=== PATIENT | female | born 1980 | race Caucasian/White ===

== ENCOUNTER 2019-09-28 11:50 | Inpatient (IN) | payer OTHER, SELFPAY ==
--- NOTE | 2019-09-28 12:24 | RAD ---
XR Chest 1 View Portable HISTORY: Cough, congestion and fever COMPARISON: None FINDINGS: The heart size is normal. The lungs are well expanded without focal areas of consolidation, pneumothorax or pleural effusions. IMPRESSION: No radiographic evidence of acute cardiopulmonary process.
[2019-09-28 13:20] LABS: Hemoglobin 13.4 g/dL (12.0-16.0); Mean Corpuscular HGB CONC 34.2 g/dL (32.0-36.0); Mean Corpuscular Hemoglobin 31.3 pg (27.0-31.0); Mean Corpuscular Volume 91.5 fL (78.0-98.0); Mean Platelet Volume 9.5 fL (7.4-10.4); Platelet Count 196 thou/uL (130-400); RBC Distribution Width 11.5 % (11.5-14.5); Red Blood Cell (RBC) Count 4.29 mill/uL (4.20-5.40); White Blood Cell (WBC) Count 24.8 thou/uL (4.8-10.8)
[2019-09-28] MEDS ORDERED: Acetaminophen 500 MG TAB ONE (13:36)
[2019-09-28 13:40] LABS: ALT (SGPT) 48 U/L (8-55); AST (SGOT) 47 U/L (5-34); Albumin 3.8 g/dL (3.5-5.0); Alkaline Phosphatase 128 U/L (40-110); Anion Gap 18 mmol/L (10-20); BUN (Urea Nitrogen) 9 mg/dL (7.0-18.7); Bilirubin, Total 1.3 mg/dL (0.2-1.2); Calc. Creatinine Clearance 0 mL/min (70-130); Calcium 9.1 mg/dL (7.8-10.44); Carbon Dioxide 19 mmol/L (22-29); Chloride 101 mmol/L (98-107); Estimated GFR-MDRD 79; Globulin 3.8 g/dL (2.4-3.5); Glucose 105 mg/dL (70-105); Potassium 3.5 mmol/L (3.5-5.1); Protein, Total 7.6 g/dL (6.0-8.3); Sodium 134 mmol/L (136-145)
[2019-09-28 13:43] LABS: Band 12 % (5-11); Eosinophils 1 % (0-10); Large Platelets SLIGHT; Lymphocytes 4 % (21-51); MDiff Complete? YES; Monocytes 7 % (0-10); Neutrophil 76 % (42-75); Platelet Clumps SLIGHT; Platelet Morphology Comment Appears Adequate; RBC Morphology Normal
[2019-09-28 13:48] LABS: Bacteria/HPF 4+ HPF (None Seen); Bilirubin Negative (Negative); Blood, Urine 2+ (Negative); Clarity Turbid (Clear); Glucose, Urine (Dipstick) Normal (Negative); Leukocyte 500 Leu/uL (Negative); Nitrite 2+ (Negative); Protein, Urine (Dipstick) 300 mg/dL (Neg-Trace); RBC/HPF 21-50 HPF (0-3); Urobilinogen Normal mg/dL (Less than 2); WBC/HPF Greater than 50 HPF (0-3)
[2019-09-28 14:13] LABS: Pregnancy Test - Urine (BHCG) Negative (Negative); Pregu Control Background? CLEAR/WHITE (CLR/WHITE); Pregu Control Bar Appear? YES (CONTROL BAR); Specific Gravity 1.019 (1.002-1.036)
[2019-09-28] MEDS ORDERED: cefTRIAXone\\ROCEPHIN 1 GM VIAL ONE (14:26)
[2019-09-28] MEDS ORDERED: Loperamide HCl 2 MG CAP PO PRN (14:44)
[2019-09-28] MEDS ORDERED: Bisacodyl 5 MG TAB PO PRN (14:44)
[2019-09-28] MEDS ORDERED: Calcium Carbonate 500 MG ChewTAB PO PRN (14:44)
[2019-09-28] MEDS ORDERED: Labetalol HCl 100 MG/20 ML VIAL SLOW IVP PRN (14:49)
[2019-09-28] MEDS ORDERED: Melatonin 3 MG TAB PO PRN (14:49)
[2019-09-28] MEDS ORDERED: Docusate 100 MG CAP PO PRN (14:49)
[2019-09-28] MEDS ORDERED: diphenhydrAMINE 25 MG CAP PO PRN (14:49)
[2019-09-28] MEDS ORDERED: Benzonatate 100 MG CAP PO PRN (14:49)
--- NOTE | 2019-09-28 15:48 | CT ---
CT ABDOMEN AND PELVIS WITHOUT IV CONTRAST: Indications: Fever, body aches. Assess for pyelonephritis. FINDINGS: Images through the lung bases show mild posterior atelectasis. Liver unremarkable. Spleen shows numerous granulomatous calcifications. The pancreas is unremarkable. Adrenal glands normal. Review of the kidneys show a 1.0 cm rounded calculus in the right renal pelvis. This does not appear to be producing obstructive change. Both ureters are normal caliber. Mild nonspecific left perinephric stranding could represent pyelonephritis. The urinary bladder is unremarkable. Small bowel loops normal caliber. The appendix is not identified. Colon is unremarkable. Aorta is normal caliber. Images through the pelvis show fluid in the cul-de-sac and right adnexa. Uterus and ovaries otherwise unremarkable. Osseous structures unremarkable. IMPRESSION: 1. A 1.0 cm calculus in the right renal pelvis. This does not appear to be producing obstructive [place] at this time. 2. Nonspecific perinephric stranding involving the left kidney and questionable left renal edema coul d represent pyelonephritis. This is suboptimally evaluated without IV contrast. 3. No obstructive change. 4. Images through the pelvis show free fluid in the cul-de-sac and right adnexa. Suggest correlation with serum HCG. POS: [facility]
[2019-09-28 17:11] VITALS: BMI 29.5
[2019-09-28] MEDS ORDERED: Fioricet 325/50/40 mg Tablet PO PRN (17:19)
[2019-09-28] MEDS: Sodium Chloride 0.9% 1,000 ML IV SCH ×2 (17:28→23:20)
--- NOTE | 2019-09-28 17:36 | PDOC.HHP ---
Hospitalist HPI - History of Present Illness Fever History of Present Illness: Ms. Starr is a very pleasant 39-year-old female with no known past medical history presents with fever. Patient has been feeling ill for the last three days. It started with subjective chills and feeling as though she was sweating. Patient states that at the time she did not have a temperature. Patient denies urinary frequency, urgency, or dysuria. Patient denies flank pain. Patient does have full-body sweats, and generalized malaise. Patient with mild headache. Patient denies any respiratory symptoms, no cough, no shortness of breath, no sputum production. Patient has not been exposed anybody with the covid 19 virus. Patient is otherwise healthy and takes no medications chronically. Patient with past medical history of remote kidney stones. Patient has had no surgeries in the past. Patient diagnosed with severe sepsis present on admission secondary to pyelonephritis. Patient admitted to the medical floor for close management. 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 Gastrointestinal: reports: no pertinent history Heme/Onc: reports: no pertinent history Hepatobiliary: reports: no pertinent history Psych: reports: no pertinent history Musculoskeletal: reports: no pertinent history Rheumatologic: reports: no pertinent history Infectious Disease: reports: no pertinent history ENT: reports: no pertinent history Renal/: reports: no pertinent history Endocrine: reports: no pertinent history Dermatology: reports: no pertinent history - Past Surgical History Past Surgical History: reports: no pertinent history - Family History Family History: reports: hypertension - Social History Smoking Status: Current every day smoker (Vape) Alcohol: reports: Occassional Drugs: reports: marijuana Living Situation: With Family Domestic Violence: Negative Activity level: independent ambulation - Exam General Appearance: ill appearing General - other findings: diaphoretic sweating through sheets of bed currently Eye: PERRL, anicteric sclera ENT: normocephalic atraumatic, moist mucosa Neck: supple, symmetric, no lymphadenopathy Heart: RRR, no murmur, no gallops, no rubs, normal peripheral pulses Respiratory: CTAB, no wheezes, no rales, no ronchi, normal chest expansion, no tachypnea Gastrointestinal: soft, non-tender, no guarding, no rigidity Extremities: no edema Skin: no rashes Neurological: cranial nerve grossly intact, no focal deficits Musculoskeletal: generalized weakness Psychiatric: A&O x 3, lethargic Hospitalist Results - Labs Result Diagrams: 09/28/19 12:48 09/28/19 12:48 Lab results: WBC 24.8 thou/uL (4.8-10.8) H 09/28/19 12:48 Hgb 13.4 g/dL (12.0-16.0) 09/28/19 12:48 Hct 39.3 % (36.0-47.0) 09/28/19 12:48 MCV 91.5 fL (78.0-98.0) 09/28/19 12:48 Plt Count 196 thou/uL (130-400) 09/28/19 12:48 Band Neuts % (Manual) 12 % (5-11) H 09/28/19 12:48 Sodium 134 mmol/L (136-145) L 09/28/19 12:48 Potassium 3.5 mmol/L (3.5-5.1) 09/28/19 12:48 Chloride 101 mmol/L (98-107) 09/28/19 12:48 Carbon Dioxide 19 mmol/L (22-29) L 09/28/19 12:48 BUN 9 mg/dL (7.0-18.7) 09/28/19 12:48 Creatinine 0.80 mg/dL (0.6-1.1) 09/28/19 12:48 Glucose 105 mg/dL (70-105) 09/28/19 12:48 Lactic Acid 1.0 mmol/L (0.5-2.2) 09/28/19 12:48 Calcium 9.1 mg/dL (7.8-10.44) 09/28/19 12:48 Total Bilirubin 1.3 mg/dL (0.2-1.2) H 09/28/19 12:48 AST 47 U/L (5-34) H 09/28/19 12:48 ALT 48 U/L (8-55) 09/28/19 12:48 Alkaline Phosphatase 128 U/L (40-110) H 09/28/19 12:48 Serum Total Protein 7.6 g/dL (6.0-8.3) 09/28/19 12:48 Albumin 3.8 g/dL (3.5-5.0) 09/28/19 12:48 Urine Ketones 10 mg/dL (Negative) A 09/28/19 12:45 Urine Blood 2+ (Negative) A 09/28/19 12:45 Urine Nitrite 2+ (Negative) A 09/28/19 12:45 Ur Leukocyte Esterase 500 Mary/uL (Negative) A 09/28/19 12:45 Urine RBC 21-50 HPF (0-3) A 09/28/19 12:45 Urine WBC Greater than 50 HPF (0-3) A 09/28/19 12:45 Ur Squamous Epith Cells 7-10 HPF (0-3) A 09/28/19 12:45 Urine Bacteria 4+ HPF (None Seen) A 09/28/19 12:45 - Radiology Interpretation CT scan - abdomen Status: image reviewed by wi Hospitalist H&P A/P - Problem (1) Severe sepsis Code(s): A41.9 - SEPSIS, UNSPECIFIED ORGANISM; R65.20 - SEVERE SEPSIS WITHOUT SEPTIC SHOCK Status: Acute (2) Pyelonephritis Code(s): N12 - TUBULO-INTERSTITIAL NEPHRITIS, NOT SPCF ACUTE OR CHRONIC Status: Acute (3) UTI (urinary tract infection) Status: Acute (4) Fever Code(s): R50.9 - FEVER, UNSPECIFIED Status: Acute (5) Leukocytosis Code(s): D72.829 - ELEVATED WHITE BLOOD CELL COUNT, UNSPECIFIED Status: Acute (6) Tobacco abuse Code(s): Z72.0 - TOBACCO USE Status: Acute (7) Nephrolithiasis Status: Acute - Plan Plan: Plan: admit to medical floor, inpatient status broad-spectrum antibiotics urinary culture blood culture de-escalate to culture and sensitivity as able IV fluid resuscitation sepsis protocol blood sugar control routine screening labs Nicotine patch G.I. prophylaxis DVT prophylaxis
[2019-09-28] MEDS ORDERED: Nicotine 14 MG PATCH TD PRN (18:00)
[2019-09-28] MEDS: Ondansetron PF 4 MG/2 ML Vial IVP PRN (20:59)
[2019-09-28] MEDS: Famotidine 20 MG TAB PO SCH (20:59)
[2019-09-28] MEDS: Acetaminophen 325 MG TAB PO PRN (21:02)
[2019-09-28] MEDS: HYDROcodone/Acetaminophen 5/325 mg Tablet PO PRN (23:18)
[2019-09-29] MEDS: Acetaminophen 325 MG TAB PO PRN ×3 (03:41→22:05)
[2019-09-29] MEDS: Ondansetron PF 4 MG/2 ML Vial IVP PRN ×3 (03:42→16:12)
[2019-09-29] MEDS: Sodium Chloride 0.9% 1,000 ML IV SCH ×2 (05:17→16:14)
[2019-09-29 05:42] LABS: Hemoglobin 11.9 g/dL (12.0-16.0); Mean Corpuscular HGB CONC 33.9 g/dL (32.0-36.0); Mean Corpuscular Hemoglobin 31.1 pg (27.0-31.0); Mean Corpuscular Volume 91.7 fL (78.0-98.0); Mean Platelet Volume 8.8 fL (7.4-10.4); Platelet Count 290 thou/uL (130-400); RBC Distribution Width 11.3 % (11.5-14.5); Red Blood Cell (RBC) Count 3.82 mill/uL (4.20-5.40); White Blood Cell (WBC) Count 20.4 thou/uL (4.8-10.8)
[2019-09-29 05:50] LABS: Hemoglobin A1c 4.8 % (4.0-6.0)
[2019-09-29 06:08] LABS: Anion Gap 11 mmol/L (10-20); BUN (Urea Nitrogen) 7 mg/dL (7.0-18.7); Calc. Creatinine Clearance 137 mL/min (70-130); Calcium 8.6 mg/dL (7.8-10.44); Carbon Dioxide 21 mmol/L (22-29); Chloride 106 mmol/L (98-107); Cholesterol 159 mg/dl (< 200 Desired); Estimated GFR-MDRD Greater than 90; Glucose 110 mg/dL (70-105); HDL Cholesterol 32 mg/dL (>60 Neg Risk); LDL Cholesterol, Calculated 106 mg/dL; Potassium 3.4 mmol/L (3.5-5.1); Sodium 135 mmol/L (136-145); Triglycerides 106 mg/dL (Less than 150)
[2019-09-29 06:09] LABS: Band 23 % (5-11); Lymphocytes 4 % (21-51); MDiff Complete? YES; Monocytes 9 % (0-10); Neutrophil 64 % (42-75)
[2019-09-29 06:26] LABS: Free T4 (Free Thyroxine) 0.99 ng/dL (0.70-1.48); Thyroid Stimulating Hormone 1.1272 uIU/mL (0.35-4.94)
[2019-09-29] MEDS ORDERED: FLU VACC QS2019-20(6MOS UP)/PF 60 MCG/0.5 ML SYRINGE IM ONE (09:00)
[2019-09-29] MEDS: HYDROcodone/Acetaminophen 5/325 mg Tablet PO PRN ×2 (09:15→16:12)
[2019-09-29] MEDS: Famotidine 20 MG TAB PO SCH ×2 (09:16→22:01)
--- NOTE | 2019-09-29 11:11 | PDOC.HOSPP ---
- Subjective Subjective: Feeling worse this a.m. Severe flank pain. Nausea and vomiting this AM. Afebrile since admission. WBC count down trending, preliminary urine culture with E. coli, sensitivity pending. Time was given for questions, all answered in detail. - Objective Vital Signs & Weight: Vital Signs (12 hours) Temp Pulse Resp BP Pulse Ox 09/29/19 07:32 98.4 F 75 20 103/67 97 09/29/19 04:00 99.1 F 93 20 101/63 94 L 09/29/19 00:00 98.8 F 94 20 104/68 96 Weight Weight 177 lb 1.6 oz I&O: 09/28/19 09/29/19 09/30/19 06:59 06:59 06:59 Intake Total 2240 Balance 2240 Result Diagrams: 09/29/19 05:15 09/29/19 05:15 Radiology Reviewed by me: Yes Hospitalist ROS - Review of Systems All other systems reviewed; all pertinent +/- noted in HPI/Subj - Medication Medications: Active Medications Generic Name Dose Route Start Last Admin Trade Name Freq PRN Reason Stop Dose Admin Acetaminophen 650 mg 09/28/19 14:44 09/29/19 03:41 Tylenol PO 650 mg Q4H PRN Administration Headache/Fever/Mild Pain (1-3) Hydrocodone Bitart/Acetaminophen 1 tab 09/28/19 14:44 09/29/19 09:15 [place] 5/325 PO 1 tab Q4H PRN Administration Moderate Pain (4-6) Famotidine 20 mg 09/28/19 21:00 09/29/19 09:16 Pepcid PO 20 mg BID ERIKA Administration Ondansetron HCl 4 mg 09/28/19 14:44 09/29/19 09:15 Zofran IVP 4 mg Q6H PRN Administration Nausea/Vomiting - Exam General Appearance: ill appearing Eye: PERRL, anicteric sclera ENT: normocephalic atraumatic, moist mucosa Neck: supple, symmetric, no lymphadenopathy Heart: RRR, no murmur, no gallops, no rubs, normal peripheral pulses Respiratory: CTAB, no wheezes, no rales, no ronchi, normal chest expansion, no tachypnea Gastrointestinal: soft, non-tender, no guarding, no rigidity Extremities: no edema Skin: no lesions, no rashes Neurological: cranial nerve grossly intact, no focal deficits Psychiatric: A&O x 3, lethargic Hosp A/P (1) Severe sepsis Code(s): A41.9 - SEPSIS, UNSPECIFIED ORGANISM; R65.20 - SEVERE SEPSIS WITHOUT SEPTIC SHOCK Status: Acute (2) Pyelonephritis Code(s): N12 - TUBULO-INTERSTITIAL NEPHRITIS, NOT SPCF ACUTE OR CHRONIC Status: Acute (3) UTI (urinary tract infection) Status: Acute (4) Fever Code(s): R50.9 - FEVER, UNSPECIFIED Status: Acute (5) Leukocytosis Code(s): D72.829 - ELEVATED WHITE BLOOD CELL COUNT, UNSPECIFIED Status: Acute (6) Tobacco abuse Code(s): Z72.0 - TOBACCO USE Status: Acute (7) Nephrolithiasis Status: Acute - Plan Plan: medical unit urology consultation, recommendations appreciated Nephrolithiasis on CT abd/ pelvis, no obvious hydronephrosis at that time broad-spectrum antibiotics urine culture, preliminary with e. coli, sensitivity pending blood culture De escalate to culture and sensitivity as able IV fluid resuscitation sepsis protocol symptomatic control of nausea and vomiting No pulmonary symptoms, no cough, no COVID exposure blood sugar control routine screening labs nicotine patch PRN G.I. prophylaxis DVT prophylaxis
[2019-09-29] MEDS: Morphine 2 MG/ML SYRINGE SLOW IVP PRN ×2 (11:32→18:02)
--- NOTE | 2019-09-29 13:25 | RAD ---
SUPINE ABDOMEN: HISTORY: Renal calculus. COMPARISON: CT abdomen and pelvis 09/28/19. FINDINGS: The 1 cm calculus seen in the upper collecting structures of the right kidney on CT is seen on plain film. The bowel gas pattern is nonspecific with scattered small bowel gas. Stool and gas throughout the colon. IMPRESSION: A 1 cm calculus in the right renal pelvis is noted. No other urinary tract calcification was seen on yesterday's CT. POS: [facility]
[2019-09-29] MEDS: cefTRIAXone\\ROCEPHIN 2 GM in Sodium Chloride 0.9% 100 ML IVPB SCH (13:48)
--- NOTE | 2019-09-29 13:58 | CON ---
DATE OF CONSULTATION: 09/29/2019 REASON FOR CONSULT: Pyelonephritis, history of kidney stones. HISTORY OF PRESENT ILLNESS: Ms. Starr is a pleasant 39-year-old female, who presented to the emergency room with 3-day history of generalized feeling of malaise, chills. ER workup demonstrated temperature of 103.3, tachycardic. Her fever has resolved, tachycardia resolved with fluids. She has been provided Rocephin by the emergency room and continues to be provided Rocephin on the floor. She denies prior history of pyelonephritis. Remote history of UTI as a teenager. Known history of recurrent kidney stone, right and left side per the patient with spontaneous passage, however, these were small in caliber. She denies prior surgical intervention for kidney stones. 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 She denies dysuria, gross hematuria. She did present with left flank pain, mild right flank pain. She states that this has improved with minimal discomfort at this time. PAST MEDICAL HISTORY: History of kidney stones with spontaneous passage. PAST SURGICAL HISTORY: None. ALLERGIES: NO KNOWN DRUG ALLERGIES. 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 Occasional marijuana. Social drinker. PHYSICAL EXAMINATION: VITAL SIGNS: T-max of 103.3 in the emergency room, T-current is 99.4, her heart rate is 94, and blood pressure 118/76. GENERAL: The patient looks malaise, however, cooperative to physical exam. She states that subjectively she has been feeling better than on initial presentation. HEENT: Grossly unremarkable. Her skin is somewhat clammy. HEART: Regular rate. LUNGS: Clear. ABDOMEN: Soft. There is no gross CVA tenderness on today's exam. EXTREMITIES: No cyanosis, clubbing, or edema. SKIN: Cool to touch, multiple tattoos appreciated. GENITOURINARY: Grossly unremarkable without evidence of significant prolapse. EXTREMITIES: No cyanosis, clubbing, or edema. NEUROLOGIC: No gross focal deficits. PSYCHIATRIC: Appears to be appropriate and intact. PERTINENT LABORATORY AND IMAGING DATA: She presented with white count of 24.8. Repeat CBC this morning is 20.4, hemoglobin 11, platelet 290, 12 bands yesterday , 23 bands today, however, segs are improved from 76 to 64. Creatinine is 0.6. Lactic acid within normal limits at 1.0. Chest x-ray negative. UA demonstrates 500 leukocytes, 20 to 50 rbc's, greater than 50 wbc's, 7 to 10 epithelials, and 4+ bacteria. Urine culture demonstrating Escherichia coli. Sensitivity is pending. CT of the abdomen and pelvis without contrast: Spleen demonstrates multiple granulomatous calcifications. No evidence of hydronephrosis bilaterally. There is a 1-cm right renal pelvic stone. Mild left perinephric stranding suggesting left pyelonephritis. No gross abscess is seen. Per my review, the right renal pelvic stone measures 10 x 8 mm, Hounsfield unit greater than 1000. IMPRESSION AND PLAN: 1. Ms. Starr is a 39-year-old female, who presents with Escherichia coli pyelonephritis. 2. History of fever, leukocytosis. 3. History of kidney stone. 4. Current CT demonstrating no evidence of hydronephrosis, nonobstructing right renal pelvic stone measuring 10 x 8 mm per my review. l obtain KUB. Continue Rocephin, I will add Levaquin, until sensitivity finalized. Unless the stone presents with obstructive uropathy, elective treatment of her right kidney stone is advised. discontinue her calcium supplementation, as her Hounsfield unit of calculi c/w dense stone, calcium moiety. 5. Gastroesophageal reflux disease, may provide pharmacologic medication for gastroesophageal reflux disease. Discontinue calcium/Tums. The patient will need to be in-house until sensitivity finalized for transition to appropriate oral antibiotic regimen. Job ID: [id number] [facility]
[2019-09-30] MEDS: Sodium Chloride 0.9% 1,000 ML IV SCH ×2 (05:43→12:43)
[2019-09-30 06:28] LABS: Anion Gap 11 mmol/L (10-20); BUN (Urea Nitrogen) 5 mg/dL (7.0-18.7); Calc. Creatinine Clearance 161 mL/min (70-130); Calcium 8.4 mg/dL (7.8-10.44); Carbon Dioxide 23 mmol/L (22-29); Chloride 106 mmol/L (98-107); Estimated GFR-MDRD Greater than 90; Glucose 88 mg/dL (70-105); Potassium 3.1 mmol/L (3.5-5.1); Sodium 137 mmol/L (136-145)
[2019-09-30 06:29] LABS: #Eosinphils 0.1 thou/uL (0.0-0.7); #Lymphocytes 1.7 thou/uL (1.20-3.40); #Monocytes 1.7 thou/uL (0.11-0.59); #Neutrophils 8.1 thou/uL (1.40-6.50); %Basophils 0.3 % (0.0-1.0); %Eosinophils 0.6 % (0.0-10.0); %Lymphocytes 14.4 % (21.0-51.0); %Monocytes 14.4 % (0.0-10.0); %Neutrophils 70.3 % (42.0-75.0); Hemoglobin 10.5 g/dL (12.0-16.0); Mean Corpuscular HGB CONC 34.6 g/dL (32.0-36.0); Mean Corpuscular Hemoglobin 31.6 pg (27.0-31.0); Mean Corpuscular Volume 91.5 fL (78.0-98.0); Mean Platelet Volume 8.7 fL (7.4-10.4); Platelet Count 261 thou/uL (130-400); RBC Distribution Width 11.5 % (11.5-14.5); Red Blood Cell (RBC) Count 3.31 mill/uL (4.20-5.40); White Blood Cell (WBC) Count 11.5 thou/uL (4.8-10.8)
[2019-09-30] MEDS: Famotidine 20 MG TAB PO SCH ×2 (08:22→21:09)
--- NOTE | 2019-09-30 08:40 | RAD ---
EXAM: XR Abdomen 1 View/KUB PROVIDED CLINICAL HISTORY: Right renal calculus COMPARISON: 09/29/2019 FINDINGS: Calculus involving right renal pelvis redemonstrated, radiographically stable. No additional urinary tract calculi are radiographically apparent. The abdominal bowel gas pattern is nonspecific. IMPRESSION: Stable exam.
--- NOTE | 2019-09-30 08:45 | PRG ---
DATE OF SERVICE: 09/30/2019 SUBJECTIVE: Denies chills, feels better today. Denies nausea or vomiting. On today's round, she relates that she has vague right lower back pain, constant in nature. OBJECTIVE: VITAL SIGNS: T-max of 103.1, T current 99.2, pulse 97, respiratory rate 18, and blood pressure 146/86. GENERAL: Overall appearance is significantly better. HEENT: Grossly unremarkable. HEART: Regular rate. LUNGS: Clear. ABDOMEN: Soft. MUSCULOSKELETAL: Mild tenderness of the right lower back. EXTREMITIES: No cyanosis, clubbing, or edema. PERTINENT LABORATORY DATA: White count significantly improved from 24,000 to 11.5, hemoglobin 10, platelet 262, resolution of bandemia. Creatinine 0.7. Urine culture E. coli, pansensitive except to quinolones. The patient currently on Rocephin. Blood culture preliminary negative. Influenza negative. CT on admission demonstrates left perinephric stranding consistent with pyelonephritis, incidental right 1 cm renal pelvic stone. KUB yesterday demonstrates stone in the kidney consistent with renal calculi. IMPRESSION AND PLAN: 1. Ms. Starr is a 39-year-old female admitted for Escherichia coli pyelonephritis. Blood culture negative. 2. History of fever. 3. Leukocytosis, bandemia, improved, resolving. 4. Right renal pelvic stone as she has vague right flank pain, we will obtain repeat KUB. Infectious Disease consultation obtained, due to quinolone resistance. I would prefer oral quinolones, however, it is resistant. As I believe, cephalosporin oral has poor tissue penetration, will initiate Infectious Disease consult, IV Rocephin as outpatient is preferable? Anticipate the patient to be discharged in the next 24 to 48 hours, if needs to be afebrile for at least 24 hours prior to discharge. addendum repeat KUB this morning demonstrates no change in location of her right renal pelvic stone. No change in disposition/plan. Job ID: [id number] [facility]
[2019-09-30] MEDS: HYDROcodone/Acetaminophen 5/325 mg Tablet PO PRN ×2 (08:49→12:46)
--- NOTE | 2019-09-30 11:08 | PDOC.HOSPP ---
- Subjective Encounter Date: 09/30/19 Encounter Time: 07:45 Subjective: still has mild pain in right lower back area, no nausea had fever overnight, none now - Objective Vital Signs & Weight: Vital Signs (12 hours) Temp Pulse Resp BP BP Pulse Ox 09/30/19 07:46 95 09/30/19 07:39 99.2 F 97 18 146/86 H 95 09/30/19 04:58 98.3 F 81 20 110/73 96 Weight Weight 177 lb 0.499 oz I&O: 09/29/19 09/30/19 10/01/19 06:59 06:59 06:59 Intake Total 2240 Balance 2240 Result Diagrams: 09/30/19 05:49 09/30/19 05:49 Hospitalist ROS - Medication Medications: Active Medications Generic Name Dose Route Start Last Admin Trade Name Freq PRN Reason Stop Dose Admin Acetaminophen 650 mg 09/28/19 14:44 09/29/19 22:05 Tylenol PO 650 mg Q4H PRN Administration Headache/Fever/Mild Pain (1-3) Hydrocodone Bitart/Acetaminophen 1 tab 09/28/19 14:44 09/30/19 08:49 [place] 5/325 PO 1 tab Q4H PRN Administration Moderate Pain (4-6) Famotidine 20 mg 09/28/19 21:00 09/30/19 08:22 Pepcid PO 20 mg BID ERIKA Administration Ceftriaxone Sodium 2 gm/ 100 mls @ 200 mls/hr 09/29/19 14:00 09/29/19 13:48 Sodium Chloride IVPB 100 mls 1400 ERIKA Administration Sodium Chloride 1,000 mls @ 75 mls/hr 09/29/19 14:45 09/30/19 05:43 Normal Saline 0.9% IV 10/01/19 14:46 Not Given .[id number] ERIKA Morphine Sulfate 2 mg 09/28/19 14:50 09/29/19 18:02 Morphine SLOW IVP 2 mg Q4H PRN Administration Moderate to Severe Pain (6-10) Ondansetron HCl 4 mg 09/28/19 14:44 09/29/19 16:12 Zofran IVP 4 mg Q6H PRN Administration Nausea/Vomiting Sodium Chloride 10 ml 09/30/19 09:00 09/30/19 08:24 Flush - Normal Saline IVF Not Given Q12HR ERIKA - Exam General Appearance: awake alert Eye: PERRL, anicteric sclera ENT: no oropharyngeal lesions, moist mucosa Neck: supple, no JVD Heart: RRR, no murmur Respiratory: no wheezes, no rales Gastrointestinal: soft, non-distended, normal bowel sounds, no guarding, no rigidity Extremities: no cyanosis, no edema Neurological: cranial nerve grossly intact, no focal deficits Psychiatric: normal affect, A&O x 3 Hosp A/P (1) Sepsis Code(s): A41.9 - SEPSIS, UNSPECIFIED ORGANISM Status: Acute Qualifiers: Sepsis type: Escherichia coli Sepsis acute organ dysfunction status: without acute organ dysfunction Qualified Code(s): A41.51 - Sepsis due to Escherichia coli [E. coli] (2) Nephrolithiasis Status: Acute (3) Pyelonephritis Code(s): N12 - TUBULO-INTERSTITIAL NEPHRITIS, NOT SPCF ACUTE OR CHRONIC Status: Acute - Plan urine cultures are growing e.coli resistant to quinolones CT abd and kub xray results noted, has perinephric stranding on left and right pelvic area stone which is nonobstructive had tmax of 103 last 24hrs continue iv hydration, ceftriaxone to ambulate in hallway as tolerated dc plan per urology adv, likely in am if stable
[2019-09-30] MEDS: Ondansetron PF 4 MG/2 ML Vial IVP PRN (12:46)
[2019-09-30] MEDS: cefTRIAXone\\ROCEPHIN 2 GM in Sodium Chloride 0.9% 100 ML IVPB SCH (12:50)
--- NOTE | 2019-09-30 15:59 | CON ---
DATE OF CONSULTATION: 09/30/2019 REASON FOR CONSULT: Pyelonephritis. HISTORY OF PRESENT ILLNESS: A 39-year-old with history of nephrolithiasis with 2 episodes of stone excretion which was spontaneous in the past, now presents with fever and flank pain. No headaches. No visual symptoms, sore throat, odynophagia, dysphagia. No chest pain. Mild cough. No abdominal pain or diarrhea. No joint symptoms. No skin disorder. MEDICAL HISTORY: Nephrolithiasis with spontaneous passage of small kidney stones. SOCIAL HISTORY: Drinks occasionally, no smoking. She vapes. She had been smoking in the past, but she is vaping right now. Lives with family. ALLERGIES: NONE. CURRENT MEDICATIONS: 1. P.r.n. medications. 2. Fioricet. 3. [place]. 4. DuoNeb. 5. Tessalon. 6. Ceftriaxone. 7. Pepcid. 8. Colace. 9. Normodyne. 10. Imodium. 11. Melatonin. PHYSICAL EXAMINATION: VITAL SIGNS: T-max 103 yesterday, she is now 98.3. Other vital signs are normal. GENERAL: Awake, alert. No distress. SKIN: Normal, no lymphadenopathy. HEENT: Ocular movements conjugate. Nasal passages patent. Oral cavity normal. NECK: Supple. No jugular venous distention. LUNGS: Symmetric, clear breath sounds. HEART: S1, S2, regular rate with right flank pain. ABDOMEN: Soft, not distended. [id number] tenderness in right flank area. No suprapubic distention or tenderness. MUSCULOSKELETAL: No joint inflammatory activity. Pulses 1+ in dorsalis pedis. NEUROLOGIC: Nonfocal including cognitive function. LABORATORY DATA: Urinalysis, greater than 50 wbc's. White cell count is 24,000, down to 11.5; hemoglobin 13.4; platelets 196; 12% bands. Creatinine 0.69. AST 47, ALT 48, bilirubin 1.3, globulin 3.8. E coli from urine, one sample. Two sets of blood cultures pending. Urine organism is susceptible to all agents except for quinolones. MARCIE for trimethoprim sulfa is less than 20. IMAGING STUDIES: Show a 1 cm calculus in the right renal pelvis without obstruction and there is perinephric stranding in the left kidney. ASSESSMENT AND PLAN: Pyelonephritis, nephrolithiasis and quinolone resistant E coli and but no obstruction. Probably tomorrow should be able to be transitioned to oral Bactrim 1 b.i.d. for 14 days and that should take care of the problem at least in the acute phase. Once the infection is resolved, then she will be eligible for removal of the stone, does not look like this one is going to spontaneously be excreted. She will need to evaluate measures to prevent recurrence of the stones, which we will start with an analysis of the stone material probably calcium oxalate. Job ID: [id number]
[2019-09-30] MEDS: Acetaminophen 325 MG TAB PO PRN (18:04)
[2019-10-01] MEDS: Acetaminophen 325 MG TAB PO PRN (02:28)
[2019-10-01] MEDS: Sodium Chloride 0.9% 1,000 ML IV SCH (07:34)
--- NOTE | 2019-10-01 07:46 | PRG ---
DATE OF SERVICE: 10/01/2019 SUBJECTIVE: Patient feels well, clinically improved. OBJECTIVE: VITAL SIGNS: Stable. She has been afebrile for 24 hours. ABDOMEN: Soft, nontender, nondistended. No gross CVA tenderness is appreciated. LABORATORY DATA: No new labs. Yesterday, white count did significantly improve. Creatinine stable. Blood culture negative. Urine culture demonstrating E coli, sensitive to cephalosporins, Macrobid, Bactrim, resistant to quinolones. Infectious Disease consult appreciated. IMPRESSION AND PLAN: Ms. Starr is a pleasant in 39-year-old female, presents for; 1. Escherichia coli pyelonephritis. 2. Right renal pelvic stone, 1 cm, nonobstructing visualized on KUB. The patient can be discharged today with Bactrim DS 1 p.o. b.i.d. for 14 days. Followup appointment with me is in chart. At a later date, we will proceed with elective treatment of her right renal calculi. Job ID: [id number] [facility]
[2019-10-01] MEDS: Famotidine 20 MG TAB PO SCH (10:02)
--- NOTE | 2019-10-01 13:57 | DIS ---
DATE OF ADMISSION: 09/28/2019 DATE OF DISCHARGE: 10/01/2019 DISCHARGE DISPOSITION: To home. PRIMARY DISCHARGE DIAGNOSES: 1. Pyelonephritis. 2. Sepsis. 3. Nephrolithiasis. PROCEDURES DONE DURING HOSPITALIZATION: Abdominal and pelvic CAT scan done on the day of admission showed left-sided fat stranding suggestive of pyelonephritis. There is a 1-cm calculus in the right renal pelvis with no obstructive change. Urine culture grew E coli, resistant to quinolones, but sensitive to all other antibiotics. Blood cultures x2, no growth. Influenza A and B antigens were negative. H and H of 10 and 30, platelet count 261, and had a white count of 24 on the day of admission with discharge numbers of 11. Total cholesterol 159, triglycerides 106, LDL 106, and HDL 32. Urine test was negative. INPATIENT CONSULTS: 1. Dr. Sarah Beth Lowry for Urology. 2. Dr. Rand for Infectious Disease. DISCHARGE MEDICATIONS: Bactrim Double Strength one tablet twice daily for 2 weeks. ALLERGIES: NO KNOWN DRUG ALLERGIES. DISCHARGE PLAN: The patient to follow up with Dr. Lowry on 10/13/2019 at 11:30 a.m. She needs to find and follow up with the primary care physician in 1 week. BRIEF COURSE DURING HOSPITALIZATION: The patient initially got admitted on the with complaints of nausea, abdominal pain, and fever. She was found to be septic. She had findings of UTI and CT abdomen showed left-sided fat stranding suggestive of pyelonephritis and 1-cm right renal calculus. There was no obstructive uropathy. She has had consultation with Dr. Lowry for Urology. Her urine culture grew E coli, resistant to quinolones, but sensitive to all other antibiotics. She was on broad-spectrum antibiotics and has been switched over to Bactrim. Her sepsis has resolved. She is tolerating oral solid diet and ambulating well. She needs to continue Bactrim Double Strength for 2 more weeks and follow up with Dr. Lowry for possible procedures for the large right renal calculi. Please note, I have seen and examined the patient on the day of discharge. Job ID: [id number]
[2019-10-01 14:19] VITALS: BP 131/83; TEMP 98.4
== END 2019-10-01 12:30 | disposition home or self-care (01) | DRG 872 ==
LOC: ERS 11:50 → T4-B 16:53
PROVIDERS: ADMIT Internal Medicine; ATTEND Internal Medicine
DX: A41.51 Sepsis due to Escherichia coli [E. coli] (principal); N10 Acute pyelonephritis; Z16.23 Resistance to quinolones and fluoroquinolones; N20.0 Calculus of kidney; R65.20 Severe sepsis without septic shock; F17.290 Nicotine dependence, other tobacco product, uncomplicated; K21.9 Gastro-esophageal reflux disease without esophagitis; Z23 Encounter for immunization; Z09 Encounter for follow-up examination after completed treatment for conditions other than malignant neoplasm; Z87.442 Personal history of urinary calculi; Z87.440 Personal history of urinary (tract) infections
CPT/HCPCS: 36415; 71045; 74018; 74176; 80048; 80053; 80061; 81003; 81015; 81025; 83036; 83605; 84439; 84443; 84702; 85025; 87040; 87077; 87086; 87186; 87804; 90471; 90686; 96361; 96365; G0008; J0696; J1956; J2270; J2405; J3490

== ENCOUNTER 2019-10-04 17:33 | Inpatient (IN) | payer OTHER, SELFPAY ==
[~2019-10-04 17:33] MED LIST: Heparin 1,000 UNITS/ML VIAL ONE
[2019-10-04] MEDS ORDERED: Ketorolac Tromethamine 30 MG/ML VIAL ONE (18:08)
[2019-10-04] MEDS ORDERED: Ondansetron PF 4 MG/2 ML Vial ONE ×2 (18:08→19:28)
[2019-10-04] MEDS ORDERED: Fentanyl 100 MCG/2 ML VIAL ONE (18:08)
[2019-10-04 18:13] LABS: Hemoglobin 13.3 g/dL (12.0-16.0); Mean Corpuscular HGB CONC 33.9 g/dL (32.0-36.0); Mean Corpuscular Hemoglobin 31.2 pg (27.0-31.0); Mean Corpuscular Volume 92.1 fL (78.0-98.0); Mean Platelet Volume 9.1 fL (7.4-10.4); Platelet Count 495 thou/uL (130-400); Red Blood Cell (RBC) Count 4.26 mill/uL (4.20-5.40)
[2019-10-04 18:29] LABS: Band 12 % (5-11); Eosinophils 1 % (0-10); Large Platelets SLIGHT; Lymphocytes 16 % (21-51); MDiff Complete? YES; Metamyelocyte 6 % (0-0); Monocytes 5 % (0-10); Myelocyte 5 % (0-0); Neutrophil 53 % (42-75); Platelet Morphology Comment Appears Increased; Polychromasia SLIGHT = 2-3 cells (100X) (0-2/hpf); Promyelocytes 1 % (0-0); Vacuoles SLIGHT
[2019-10-04 18:37] LABS: BHCG - Serum Negative (NEGATIVE); Pregs Control Background? CLEAR/WHITE (CLR/WHITE); Pregs Control Bar Appear? YES (CONTROL BAR)
[2019-10-04 18:56] LABS: ALT (SGPT) 43 U/L (8-55); AST (SGOT) 29 U/L (5-34); Albumin 3.9 g/dL (3.5-5.0); Alkaline Phosphatase 134 U/L (40-110); Anion Gap 20 mmol/L (10-20); BUN (Urea Nitrogen) 8 mg/dL (7.0-18.7); Bilirubin, Total 0.4 mg/dL (0.2-1.2); Calc. Creatinine Clearance 0 mL/min (70-130); Carbon Dioxide 18 mmol/L (22-29); Chloride 103 mmol/L (98-107); Estimated GFR-MDRD 83; Glucose 107 mg/dL (70-105); Lipase 18 U/L (8-78); Potassium 3.7 mmol/L (3.5-5.1); Protein, Total 6.9 g/dL (6.0-8.3); Sodium 137 mmol/L (136-145)
--- NOTE | 2019-10-04 19:16 | CT ---
CT ABDOMEN AND PELVIS PERFORMED WITHOUT CONTRAST ENHANCEMENT: History: Abdominal pain. History of kidney stones. Comparison: 09-28-2019 FINDINGS: Lung bases show improved subsegmental atelectatic change. Tiny pleural based nodule is seen along the major fissure on the right. The liver and spleen show no focal abnormalities. There is extensive calcified granulomas seen within the spleen. The pancreas and gallbladder regions appear unremarkable. Right and left adrenal glands are normal. The right and left kidneys are normal in size. A right cyndee l pelvis calcification is again noted. It measures approximately 7 mm. It is not associated with any obstruction. The right renal pelvis is slightly prominent and the right ureter is nondilated. The nav culus is not at the ureteropelvic junction. There is no significant periaortic or mesenteric adenopat hy. The left kidney does not show the slight enlargement and fat stranding that was noted on the prio r examination. This could indicate resolving pyelonephritis. No significant periaortic or mesenteric adenopathy. CT OF PELVIS PERFORMED WITHOUT CONTRAST ENHANCEMENT: There is some free fluid in the right side of the cul-de-sac region adjacent to the right ovary, thee lar in appearance to the prior examination. This may represent a ruptured follicle. The appendix is u nremarkable. IMPRESSION: 1. Nonobstructing right renal calculus. 2. The left kidney does not have the edematous appearance seen on the previous examination. This coul d indicate some resolving pyelonephritis. POS: LEAH
[2019-10-04] MEDS ORDERED: Morphine 4 MG/ML VIAL ONE ×2 (19:28→20:30)
[2019-10-04 19:52] LABS: Bilirubin Negative (Negative); Blood, Urine Trace (Negative); Clarity Clear (Clear); Glucose, Urine (Dipstick) Normal (Negative); Leukocyte 250 Leu/uL (Negative); Nitrite Negative (Negative); Protein, Urine (Dipstick) Negative (Neg-Trace); RBC/HPF 21-50 HPF (0-3); Urobilinogen Normal mg/dL (Less than 2)
[2019-10-04 20:00] LABS: Bacteria/HPF Rare-Few HPF (None Seen)
[2019-10-04] MEDS ORDERED: Acetaminophen 325 MG TAB PO PRN (20:30)
[2019-10-04] MEDS ORDERED: cefTRIAXone\\ROCEPHIN 2 GM VIAL ONE (20:30)
[2019-10-04] MEDS ORDERED: Sodium Chloride 0.9% 1,000 ML IV SCH (20:30)
--- NOTE | 2019-10-04 21:38 | RAD ---
PORTABLE CHEST: History: Sepsis, abdominal pain. FINDINGS: Heart size and mediastinum are within normal limits. The lungs appear clear of any infiltrative proce ss. IMPRESSION: No active intrathoracic disease. POS: LEAH
--- NOTE | 2019-10-04 21:51 | HP ---
CHIEF COMPLAINT: Bilateral flank pain. HISTORY OF PRESENT ILLNESS: Ms. Starr is a 39-year-old female, who was recently admitted to the hospital for pyelonephritis, renal stone, presents to the emergency room with recurrence of bilateral flank pain associated with nausea and temperature? Workup in the emergency room, the patient was found to have leukocytosis with WBC count of 20,000 and elevated bands. Urine is still showing signs of infection. Imaging studies showed a nonobstructing right renal stone and resolving left pyelonephritis. Reviewing the patient's microbiology results of the urine, the patient had an E coli, which was resistant to Cipro, but was sensitive to everything else. The patient was discharged on Bactrim. The patient states that she has been taking her medications the way it is prescribed. In the emergency room, a septic workup including urine cultures. The patient was given one dose of IV ceftriaxone and one dose of meropenem by the ED physician. The patient is being admitted to hospital for further management. PAST MEDICAL HISTORY: 1. Kidney stone. 2. Pyelonephritis. PAST SURGICAL HISTORY: Reviewed, not pertinent. FAMILY HISTORY: Reviewed and noncontributory. SOCIAL HISTORY: The patient has a history of smoking marijuana. Quit cigarette smoking 10 years ago. Drinks alcohol socially. ALLERGIES: NO KNOWN ALLERGIES. CURRENT MEDICATIONS: Bactrim. REVIEW OF SYSTEMS: Review of 14 systems negative except what is mentioned in history of present illness. PHYSICAL EXAMINATION: GENERAL: The patient is awake, alert, in moderate distress secondary to pain. VITAL SIGNS: Blood pressure is 155/80, pulse is 71, respiratory rate is 14, temperature is 98.4. HEAD AND NECK: Normocephalic and atraumatic. NECK: Supple. No JVD. CHEST: Fair bilateral air entry. HEART: S1 and S2. Regular. ABDOMEN: Soft, nontender. Bowel sounds present. NEUROLOGIC: Awake, alert, oriented x3. No focal deficits. PSYCH: Unable to assess. GENITOURINARY: Bilateral flank tenderness. LABORATORY DATA: As mentioned above in history of present illness. IMAGING STUDIES: As mentioned above in history of present illness. ASSESSMENT: 1. Sepsis secondary to urinary tract infection. 2. Recurrent urinary tract infections/pyelonephritis. 3. Kidney stone. PLAN: 1. Admit. 2. Septic workup including urine cultures sent in the ED. 3. We will continue with IV ceftriaxone, which the patient responded during prior admission. 4. IV fluids. 5. Pain management. 6. Urologist and Infectious Disease were consulted by an ED physician. 7. Reconcile home medications. 8. DVT prophylaxis as appropriate. 9. Expected length of stay, 2 midnights. Job ID: [id number]
[2019-10-04] MEDS ORDERED: MEROPENEM 1 GM/50 ML 1 GM in Premix Bag 1 BAG IVPB SCH (22:00)
[2019-10-04 22:43] VITALS: BMI 30.2
[2019-10-04] MEDS: Sodium Chloride 0.9% 1,000 ML IV SCH (22:57)
[2019-10-04] MEDS: Promethazine HCl 12.5 MG in Sodium Chloride 0.9% 50 ML IVPB PRN (22:58)
[2019-10-05 00:02] LABS: Lactic Acid 6.1 mmol/L (0.5-2.2)
[2019-10-05] MEDS: Morphine 2 MG/ML SYRINGE SLOW IVP PRN ×5 (00:31→20:47)
[2019-10-05] MEDS: Ketorolac Tromethamine 30 MG/ML VIAL IVP PRN ×3 (00:32→23:59)
[2019-10-05] MEDS ORDERED: Lidocaine 2% Viscous Solution 10 ML, Aluminum & Magnesium Hydroxide 30 ML SSW SCH (00:45)
[2019-10-05] MEDS ORDERED: Calcium Carbonate 500 MG ChewTAB PO PRN (04:49)
[2019-10-05 04:51] LABS: #Basophils 0.1 thou/uL (0.0-0.2); #Eosinphils 0.1 thou/uL (0.0-0.7); #Lymphocytes 1.8 thou/uL (1.20-3.40); #Monocytes 0.8 thou/uL (0.11-0.59); #Neutrophils 17.1 thou/uL (1.40-6.50); %Basophils 0.4 % (0.0-1.0); %Eosinophils 0.6 % (0.0-10.0); %Lymphocytes 9.1 % (21.0-51.0); %Neutrophils 85.9 % (42.0-75.0); Hemoglobin 12.6 g/dL (12.0-16.0); Mean Corpuscular HGB CONC 31.3 g/dL (32.0-36.0); Mean Corpuscular Hemoglobin 29.5 pg (27.0-31.0); Mean Corpuscular Volume 94.1 fL (78.0-98.0); Mean Platelet Volume 9.5 fL (7.4-10.4); Platelet Count 445 thou/uL (130-400); RBC Distribution Width 12.1 % (11.5-14.5); Red Blood Cell (RBC) Count 4.26 mill/uL (4.20-5.40); White Blood Cell (WBC) Count 19.9 thou/uL (4.8-10.8)
[2019-10-05 05:09] LABS: Lactic Acid 3.4 mmol/L (0.5-2.2)
[2019-10-05] MEDS: Promethazine HCl 12.5 MG in Sodium Chloride 0.9% 50 ML IVPB PRN ×2 (05:09→18:23)
[2019-10-05 05:11] LABS: Anion Gap 15 mmol/L (10-20); BUN (Urea Nitrogen) 5 mg/dL (7.0-18.7); Calc. Creatinine Clearance 162 mL/min (70-130); Calcium 8.1 mg/dL (7.8-10.44); Carbon Dioxide 20 mmol/L (22-29); Chloride 103 mmol/L (98-107); Estimated GFR-MDRD Greater than 90; Glucose 123 mg/dL (70-105); Sodium 134 mmol/L (136-145)
[2019-10-05] MEDS: Sodium Chloride 0.9% 1,000 ML IV SCH ×3 (05:17→20:51)
[2019-10-05] MEDS ORDERED: Meropenem 1 GM in Sodium Chloride 0.9% 100 ML IVPB SCH (06:00)
[2019-10-05] MEDS ORDERED: Ketorolac Tromethamine 30 MG/ML VIAL IVP SCH (06:15)
[2019-10-05] MEDS: Ondansetron PF 4 MG/2 ML Vial IVP PRN ×2 (10:50→17:23)
[2019-10-05] MEDS ORDERED: cefTRIAXone\\ROCEPHIN 2 GM in Sodium Chloride 0.9% 100 ML IVPB SCH (11:00)
--- NOTE | 2019-10-05 12:42 | RAD ---
SUPINE ABDOMEN: Date: 10/05/2019 INDICATION: Renal calculus. COMPARISON: 09/30/2019. FINDINGS: The calcification overlying the right renal pelvic region is unchanged in size and position. Prominen t stool throughout the colon. Numerous calcifications overlie the left upper quadrant and are stable. IMPRESSION: Right renal calculus appears unchanged. POS: [facility]
--- NOTE | 2019-10-05 13:37 | CON ---
DATE OF CONSULTATION: 10/05/2019 HISTORY OF PRESENT ILLNESS: I had just seen her just a few days ago and unfortunately she has been readmitted with nausea. When I saw her in the beginning of September, she had a nephrolithiasis about 1 cm calculus in the right renal pelvis, but without obstruction and perinephric stranding. The organism was resistant to quinolones and we advised transition to Bactrim. Unfortunately, she developed nausea and had to be readmitted. She also had pain in the flank areas, both sides. On arrival, her temperature actually was normal. The other findings showed worsening neutrophilia and right now she is awake and alert. Denies headaches. No visual symptoms, sore throat, odynophagia, or dysphagia. No chest pain. She has bilateral flank pain. No diarrhea. No dysuria. No joint symptoms. PAST MEDICAL HISTORY: Nephrolithiasis; recent pyelonephritis, which is persistent. SOCIAL HISTORY: No smoking. Although she had been smoking in the past, but is mostly vaping. Lives in [place] with family. ALLERGIES: NONE. MEDICATIONS: Right now, she is on ceftriaxone p.r.n. PHYSICAL EXAMINATION: VITAL SIGNS: Show normal temperature, blood pressure 160/85, pulse 66. GENERAL: Awake, alert, oriented, in no distress. HEENT: Ocular movements conjugate. NECK: Supple. LUNGS: Symmetric clear breath sounds. HEART: S1 and S2. Regular rate. ABDOMEN: Soft with tenderness in the flank area regions, not distended. Bowel sounds are present. No bladder distention. MUSCULOSKELETAL: No joint inflammatory activity. NEUROLOGIC: Nonfocal. LABORATORY DATA: 20,000 WBC and on arrival 19.9, hemoglobin 12.6, platelets 445 with 85% neutrophils. Creatinine 0.6. Lactic acid 4.2 and 6.1. Blood culture pending. ASSESSMENT AND PLAN: Pyelonephritis with nephrolithiasis, nonobstructing and failure of outpatient Bactrim. We will go ahead and put a PICC line and switch her to Rocephin. I think she is going to have to come daily to get the infusions completed. Job ID: [id number]
--- NOTE | 2019-10-05 13:49 | SPC ---
Sonographic guided left upper extremity PICC placement HISTORY: UTI. FINDINGS: After splenic the procedure and answering all questions, left upper extremity was prepped a nd draped in usual sterile fashion. Sterile technique, buffered local anesthesia, sonographic guidance, and a 22-gauge needle were used to carefully access the left brachial vein. Standard techni que was used to place the tip of a 4 Pashto single lumen PICC so with the tip at the level of the superior vena cava. Catheter was flushed and secured externally. Patient tolerated the procedure well and was dismissed in good condition. IMPRESSION : Left upper extremity PICC is ready for use.
--- NOTE | 2019-10-05 13:57 | CON ---
DATE OF CONSULTATION: 10/05/2019 REFERRING PHYSICIAN: Hospitalist. REASON FOR CONSULT: Pyelonephritis, recurrence of fever. HISTORY OF PRESENT ILLNESS: Ms. Starr is a pleasant 39-year-old female, whom I had seen as an inpatient consultation last week, September 29, 2019. She was admitted due to history of fever, leukocytosis, and bandemia. CT demonstrated some inflammatory changes of the left kidney consistent with pyelonephritis. Her previous blood culture negative, urine culture demonstrated E coli, in which she was treated with Rocephin in-house. She did have quinolone resistance on the previous urine culture. Her leukocytosis, high fever of 103 in the past did resolve with appropriate IV antibiotic therapy. Infectious Disease was consulted on previous visit for consideration for IV antibiotics, she was approved to be discharged with p.o. Bactrim. I have followed her in-house while she was admitted and obtained KUB, as she does present with right renal pelvic stone, however, nonobstructing. As the stone is nonobstructing, she was advised that I would treat her kidney stone at a later date after convalescence from acute pyelonephritis. She was discharged last week, admitted overnight as she presents with recurrence of bilateral flank pain , with history of fever at home. On admission, she is hemodynamically stable. Repeat CT demonstrates stable nonobstructing right renal calculi. She presented with white count of 20,000, on discharge, September 29, her white count did decrease to 11, 000. She appears to be resting comfortably with appropriate IV fluid regimen, I have been reconsulted due to her readmission. PAST MEDICAL HISTORY: History of kidney stones with spontaneous passage, recent admission due to E coli pyelonephritis. PAST SURGICAL HISTORY: None. ALLERGIES: NO KNOWN DRUG ALLERGIES. 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 Uses vapes. Occasional marijuana. She is a social drinker. REVIEW OF SYSTEMS: Ten-point review of systems as above, otherwise noncontributory. PHYSICAL EXAMINATION: VITAL SIGNS: Stable. She has temperature of 98.1. Vital signs in the ER demonstrated no significant fever as well. She is hemodynamically stable with no evidence of tachycardia at 66, respiratory rate 18, oxygen saturation 98, and blood pressure 165/85. I's and O's, not strictly documented. GENERAL: The patient appears to be in no acute distress. Appears comfortable. HEENT: Grossly unremarkable. HEART: Regular rate. LUNGS: Clear. ABDOMEN: Soft. No rigidity. No rebound. Mild bilateral CVA tenderness. GENITOURINARY: Grossly unremarkable. EXTREMITIES: No cyanosis, clubbing, or edema. NEUROLOGIC: No gross focal deficits. PSYCHIATRIC: Appears to be appropriate and intact. PERTINENT LABORATORY AND IMAGING DATA: On admission, her white count is 20,000, this repeat today is 19; platelets 445; 12 bands on admission, currently improved. Creatinine is 0.6. Urinalysis on October 03 demonstrates some epithelials of 11 to 20, 7 to 10 wbc's, 20 to 50 rbc's, 250 leukocytes, negative nitrites, and rare bacteria. Blood culture on this admission negative thus far. Previous blood culture on September 27, final negative. Repeat urine culture on October 03, preliminary negative. Previous urine culture on September 27, E coli, pansensitive except to cefoxitin, ciprofloxacin, and Levaquin. The patient currently on IV Rocephin. CT of the abdomen and pelvis, which was repeated on admission on October 03 demonstrates mild edematous changes of the left kidney consistent with pyelonephritis. Again, noted was nonobstructing right renal pelvic stone about 7 mm with no evidence of obstruction. KUB, which I obtained, demonstrates stable right renal pelvic stone. IMPRESSION AND PLAN: 1. Ms. Starr is a pleasant 39-year-old female, recently admitted for Escherichia coli pyelonephritis. 2. Right renal pelvic stone, nonobstructing, measuring in largest dimension about 10 x 8 mm, Hounsfield unit greater than 1000. 3. Readmission due to recurrence of subjective fever, leukocytosis, failed outpatient p.o. antibiotic regimen. Infectious Disease consult has been placed, recommend PICC line, IV antibiotic consult Infectious Disease. will follow. Her nonobstructing right renal calculi does not warrant to be treated on this admission due to acute urinary tract infection. Job ID: [id number] [facility]
--- NOTE | 2019-10-05 14:43 | PDOC.HOSPP ---
- Subjective Encounter Date: 10/05/19 Encounter Time: 14:42 Subjective: Still has some discomfort, but otherwise feels well. - Objective Vital Signs & Weight: Vital Signs (12 hours) Temp Pulse Resp BP Pulse Ox 10/05/19 12:00 98.1 F 66 18 165/85 H 98 10/05/19 08:00 98.1 F 67 18 136/80 99 10/05/19 04:10 98.1 F 71 18 148/77 H 98 Weight Admit Weight 181 lb Weight 181 lb 11.2 oz I&O: 10/04/19 10/05/19 10/06/19 06:59 06:59 06:59 Intake Total 2030 Balance 2030 Result Diagrams: 10/05/19 04:38 10/05/19 04:39 Hospitalist ROS - Medication Medications: Active Medications Generic Name Dose Route Start Last Admin Trade Name Freq PRN Reason Stop Dose Admin Calcium Carbonate 1,000 mg 10/05/19 04:49 10/05/19 05:09 Tums PO 1,000 mg Q4H PRN Administration Heartburn or Indigestion Promethazine HCl 12.5 mg/ 50.5 mls @ 202 mls/hr 10/04/19 22:40 10/05/19 05:09 Sodium Chloride IVPB 50.5 mls Q6H PRN Administration Nausea/Vomiting Sodium Chloride 1,000 mls @ 125 mls/hr 10/04/19 22:41 10/05/19 05:17 Normal Saline 0.9% IV 1,000 mls .Q8H ERIKA Administration Ketorolac Tromethamine 15 mg 10/04/19 22:08 10/05/19 00:32 Toradol IVP 10/09/19 23:59 15 mg Q6HR PRN Administration Moderate Pain (4-6) Morphine Sulfate 2 mg 10/04/19 22:09 10/05/19 10:49 Morphine SLOW IVP 2 mg Q4H PRN Administration Severe Pain (7-10) Ondansetron HCl 4 mg 10/04/19 20:30 10/05/19 10:50 Zofran IVP 4 mg Q6H PRN Administration Nausea/Vomiting Sodium Chloride 10 ml 10/04/19 21:00 10/05/19 10:52 Flush - Normal Saline IVF 10 ml Q12HR ERIKA Administration - Exam Heart: RRR, no murmur, no gallops, no rubs, normal peripheral pulses Respiratory: CTAB, no wheezes, no rales, no ronchi, normal chest expansion, no tachypnea, normal percussion Gastrointestinal: soft, non-tender, non-distended, normal bowel sounds, no palpable masses, no hepatomegaly, no splenomegaly, no bruit Extremities: no cyanosis, no clubbing, no edema Musculoskeletal: normal tone Psychiatric: normal affect, normal behavior, A&O x 3 Hosp A/P (1) Fever Code(s): R50.9 - FEVER, UNSPECIFIED Status: Acute (2) Leukocytosis Code(s): D72.829 - ELEVATED WHITE BLOOD CELL COUNT, UNSPECIFIED Status: Acute (3) Nephrolithiasis Status: Acute (4) Pyelonephritis Code(s): N12 - TUBULO-INTERSTITIAL NEPHRITIS, NOT SPCF ACUTE OR CHRONIC Status: Acute - Plan Continue IV abx with Rocephin per ID. Has PICC. Discussed with CM. Working on setting her up for the OP infusion center. Discussed with ID. Can DC when she is stablized.
[2019-10-06] MEDS: Sodium Chloride 0.9% 1,000 ML IV SCH ×2 (05:20→12:18)
[2019-10-06] MEDS: Promethazine HCl 12.5 MG in Sodium Chloride 0.9% 50 ML IVPB PRN (05:20)
[2019-10-06] MEDS: Ketorolac Tromethamine 30 MG/ML VIAL IVP PRN ×2 (06:02→12:17)
[2019-10-06 07:45] LABS: #Eosinphils 0.1 thou/uL (0.0-0.7); #Lymphocytes 2.2 thou/uL (1.20-3.40); #Monocytes 0.8 thou/uL (0.11-0.59); #Neutrophils 6.8 thou/uL (1.40-6.50); %Basophils 0.3 % (0.0-1.0); %Monocytes 7.7 % (0.0-10.0); %Neutrophils 68.9 % (42.0-75.0); Hemoglobin 12.5 g/dL (12.0-16.0); Mean Corpuscular Hemoglobin 31.2 pg (27.0-31.0); Mean Corpuscular Volume 91.9 fL (78.0-98.0); Mean Platelet Volume 7.4 fL (7.4-10.4); Platelet Count 649 thou/uL (130-400); Red Blood Cell (RBC) Count 3.99 mill/uL (4.20-5.40); White Blood Cell (WBC) Count 9.9 thou/uL (4.8-10.8)
[2019-10-06 08:08] LABS: Anion Gap 11 mmol/L (10-20); BUN (Urea Nitrogen) 5 mg/dL (7.0-18.7); Calc. Creatinine Clearance 168 mL/min (70-130); Calcium 8.1 mg/dL (7.8-10.44); Carbon Dioxide 21 mmol/L (22-29); Chloride 107 mmol/L (98-107); Estimated GFR-MDRD Greater than 90; Glucose 92 mg/dL (70-105); Potassium 3.8 mmol/L (3.5-5.1); Sodium 135 mmol/L (136-145)
--- NOTE | 2019-10-06 08:12 | PRG ---
DATE OF SERVICE: 10/06/2019 SUBJECTIVE: Mild bilateral lower back pain, improved. Denies chills, dysuria, gross hematuria. OBJECTIVE: VITAL SIGNS: Afebrile since admission. T current is 98.6, pulse 67 , respiratory rate 18, saturation 100, and blood pressure 127/83. GENERAL: The patient is in no acute distress. Appears comfortable. HEENT: Grossly unremarkable. HEART: Regular rate. LUNGS: Clear. ABDOMEN: Soft. BACK: Mild lower back tenderness. No rigidity. No rebound. EXTREMITIES: No cyanosis, clubbing, or edema. PERTINENT LABORATORY DATA: White count has decreased from 19,000 to 9.9 this morning, hemoglobin 12, platelets 649. BMP this morning is pending. Her lactic acid has improved from 6.1 to 3.4 yesterday. Calcium 8.1. Blood culture, October 03, negative. Urine culture, October 03, repeat preliminary is negative. September 27 blood culture, negative. September 27 urine culture, E coli resistant to quinolones. IMPRESSION AND PLAN: Ms. Starr is a 39-year-old female with Escherichia coli pyelonephritis. Right 1 cm nonobstructing renal pelvic stone. History of gastroesophageal reflux disease, I have discontinued her Tums, high calcium consumption can increase one's risk of calcium stone moiety. Encouraged the patient regarding [id number] Zantac and Pepcid once she is discharged. As her white count has significantly decreased and she remains afebrile, from my perspective as she has received her PICC line, patient is cleared from my standpoint to be discharged. She has a pre-existing appointment with me provided on last admission scheduled for October 12 appointment in chart. Continue IV Rocephin per Dr. Rand' discretion. Job ID: [id number] [facility]
[2019-10-06] MEDS: Morphine 2 MG/ML SYRINGE SLOW IVP PRN (08:33)
[2019-10-06] MEDS ORDERED: Famotidine/PF 20 mg/2ml Vial SLOW IVP SCH (09:00)
[2019-10-06 11:54] VITALS: BP 121/74; TEMP 98.4
[2019-10-06] MEDS ORDERED: cefTRIAXone\\ROCEPHIN 2 GM in Sodium Chloride 0.9% 100 ML IVPB SCH (14:00)
--- NOTE | 2019-10-07 05:30 | PQF ---
[employer] Advisory Team Watch Officer Crystal Reports Winform Viewer ROMEROSeptember DUSTY NAPIER MD [id number] CLINICAL DOCUMENTATION CLARIFICATION FORM: POST DISCHARGE Addendum to original discharge summary date: ____ Late entry note date: __ DATE: 10/07/19 ATTN: Dusty Napier Please exercise your independent, professional judgment in responding to the clarification form. Clinical indicators are provided on the bottom of this form for your review Can you please further clarify if Sepsis is rued in or ruled out? Sepsis [ ] Ruled in diagnosis [ ] Continue to treat [ ] Resolved [ ] Ruled out diagnosis [ ] Cannot rule out diagnosis [ ] Other diagnosis [ ] Unable to determine In addition, please specify: Present on Admission (POA): [ ] Yes [ ] No [ ] Unable to determine For continuity of documentation, please document condition throughout progress notes and discharge summary. Thank You. CLINICAL INDICATORS - SIGNS / SYMPTOMS / LABS ED Provider pg.3- Recurrent Sepsis with UTI H and P pg.1- Bilateral flank pain H and P pg.1- found to have leukocytosis with WBC of 20,000 and elevated bands H and P pg.1- Microbiology result to the urine E. coli H and P pg.2- Sepsis secondary to UTI RISK FACTORS Pyelonephritis- H and P pg.1 Kidney stone- H and P pg.[address] Abdomen/Pelvis 10/03 Abdomen X ray10/[address] Rand 10/04 Urology Consult 10/04 Dr. Lowry IV Fluids- MAR IV antibiotics- MAR Urine Culture- Microbiology (This form is maintained as a part of the permanent medical record) 2014 [employer]. All Rights Reserved [email or web address]
--- NOTE | 2019-10-07 10:27 | DIS ---
DATE OF ADMISSION: 10/04/2019 DATE OF DISCHARGE: 10/06/2019 DISCHARGE DIAGNOSES: 1. Sepsis secondary to urinary tract infection. 2. Recurrent urinary tract infection/pyelonephritis. 3. Nonobstructing right renal calculus. HISTORY OF PRESENT ILLNESS: The patient is a 39-year-old female, who had previously been diagnosed with pyelonephritis, growing E coli and had been discharged on p.o. Bactrim. However, she subsequently had recurrence of symptoms and presented to the hospital where she was found to be septic with recurrent evidence of pyelonephritis. HOSPITAL COURSE: The patient was admitted, started on broad-spectrum antibiotics, seen in consultation by Dr. Rand and Dr. Lowry. The plan was to convert over to a course of IV antibiotics and that she had failed oral medicines with appropriate sensitivity and coverage. She therefore underwent a PICC line. Her symptoms improved substantially and she was able to ambulate, eat well, and had good pain control. Therefore, she was felt to be stable for outpatient treatment. PHYSICAL EXAMINATION: VITAL SIGNS: On the day of discharge, temperature is 98.4, pulse 60, respirations 16, O2 saturation 98% on room air, and blood pressure 121/74. GENERAL: She was awake, alert, oriented, pleasant, and cooperative. HEART: Regular rate and rhythm without murmurs, gallops, or rubs. LUNGS: Clear to auscultation bilaterally with good chest wall expansion and air exchange. ABDOMEN: Soft, nontender, and nondistended. Positive bowel sounds. No masses. No organomegaly. EXTREMITIES: No edema. DISPOSITION: The patient is discharged to home with a PICC line to have outpatient IV antibiotics. ACTIVITY: As tolerated. DIET: No dietary restrictions. MEDICATIONS: Include: 1. Zofran ODT 4 mg q.4 hours p.r.n. nausea. 2. Tramadol 50 mg p.o. q.6 hours p.r.n. pain. 3. She is to have outpatient IV Rocephin administered through infusion area of the [facility]cology [facility]. FOLLOWUP: She will follow up with Dr. Rand and Dr. Lowry and she can return to the hospital at anytime should she have the need to do so. TIME SPENT: Time in discharge activity was greater than 30 minutes. Job ID: [id number]
--- NOTE | 2019-10-07 14:03 | EKG ---
Test Reason : Blood Pressure : / mmHG Vent. Rate : 073 BPM Atrial Rate : 073 BPM P-R Int : 150 ms QRS Dur : 088 ms QT Int : 432 ms P-R-T Axes : 026 017 010 degrees QTc Int : 475 ms Normal sinus rhythm Normal ECG Confirmed by ENEDELIA PRITCHETT MD ([id number]), associate editor RADHIKA CURRY ([id number]) on 10/07/2019 2:03:04 PM Referred By: Confirmed By:ENEDELIA PRTICHETT MD
== END 2019-10-06 15:58 | disposition home or self-care (01) | DRG 872 ==
LOC: ERS 17:33 → T4-B 20:35
PROVIDERS: ADMIT Internal Medicine; ATTEND Internal Medicine
PROC: 02HV33Z Insertion of Infusion Device into Superior Vena Cava, Percutaneous Approach (ICD-10-PCS; principal; 2019-10-05)
PROC: B548ZZA Ultrasonography of Superior Vena Cava, Guidance (ICD-10-PCS; 2019-10-05)
DX: A41.51 Sepsis due to Escherichia coli [E. coli] (principal); Z16.23 Resistance to quinolones and fluoroquinolones; N10 Acute pyelonephritis; Z87.891 Personal history of nicotine dependence
CPT/HCPCS: 36415; 36569; 71045; 74018; 74176; 80048; 80053; 81003; 81015; 82550; 83605; 83690; 84484; 84703; 85025; 87040; 87086; 93005; 96361; 96365; 96375; 96376; C1751; J0696; J1644; J1885; J2185; J2270; J2405; J2550; J3010; J3490; S0028

== ENCOUNTER 2020-07-05 08:08 | Outpatient (CLI) | payer OTHER ==
--- NOTE | 2020-07-05 08:23 | RAD ---
EXAM: XR Abdomen 1 View/KUB PROVIDED CLINICAL HISTORY: Renal calculi. 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 Previously seen calcification overlying the region of the right renal pelvis is again seen related to known renal calculus. This calculus is unchanged in size or position. Few calcifications a gain overlie the left hemipelvis likely related to phleboliths. Bowel gas pattern is nonspecific. Abdominal radiograph is stable when compared to prior exam. IMPRESSION: Stable right nephrolithiasis.
== END 2020-07-05 08:09 | disposition home or self-care (01) ==
LOC: BICRAD 08:08
PROVIDERS: ATTEND Urology
DX: N20.0 Calculus of kidney (principal)
CPT/HCPCS: 74018

== ENCOUNTER 2020-07-08 06:57 | Outpatient (CLI) | payer OTHER ==
[2020-07-08 12:11] LABS: Hemoglobin 12.7 g/dL (12.0-16.0); Mean Corpuscular Hemoglobin 30.2 PG (27.0-33.0); Mean Corpuscular Volume 91.4 fl (80.0-100.0); Mean Platelet Volume 10.5 fl (7.4-10.4); Platelet Count 305 10x3/uL (130-400); Red Blood Cell (RBC) Count 4.21 10x6/uL (3.90-5.20); White Blood Cell (WBC) Count 7.6 10x3/uL (4.5-11.0)
[2020-07-08 12:17] LABS: BHCG - Serum Negative (NEGATIVE); Pregs Control Background? CLEAR/WHITE (CLR/WHITE); Pregs Control Bar Appear? YES (CONTROL BAR)
[2020-07-08 12:20] LABS: INR-International Normal Ratio 0.9; PTT 28.5 sec (22.0-33.0); Prothrombin Time 9.9 sec (9.5-12.1)
[2020-07-08 12:28] LABS: Anion Gap 13 mmol/L (10-20); BUN (Urea Nitrogen) 12 mg/dL (7.0-18.7); Calc. Creatinine Clearance 0 mL/min (70-130); Carbon Dioxide 23 mmol/L (22-29); Chloride 106 mmol/L (98-107); Glucose 85 mg/dL (70-105); Potassium 4.9 mmol/L (3.5-5.1); Sodium 137 mmol/L (136-145)
[2020-07-08 21:23] LABS: SARS-CoV-2 MS2 Positive; SARS-CoV-2 N Gene Negative; SARS-CoV-2 S Gene Negative; SARS-CoV-2 by NAA Not Detected (NotDetected); SARS-CoV-2 orf1ab Negative
== END 2020-07-08 06:58 | disposition home or self-care (01) ==
LOC: LABBT 06:57
PROVIDERS: ATTEND Urology
DX: Z01.818 Encounter for other preprocedural examination (principal); Z20.822 Contact with and (suspected) exposure to COVID-19; N20.0 Calculus of kidney
CPT/HCPCS: 80048; 84703; 85027; 85610; 85730; 87635; 93005; 93010; U0003

== ENCOUNTER 2020-07-13 06:34 | Day surgery (SDC) | payer OTHER ==
[2020-07-11 15:08] VITALS: BMI 34.8
[2020-07-13] MEDS ORDERED: Meropenem 2 GM, Admixture Fee 1 EACH in Sodium Chloride 0.9% 100 ML IVPB SCH (06:45)
[2020-07-13] MEDS ORDERED: Midazolam HCl 2 mg/2 ml Vial ONE (07:35)
--- NOTE | 2020-07-13 08:04 | RAD ---
XR Abdomen 1 View/KUB History: Preop cystogram Comparison: Radiograph July 05, 2020 Findings: The right renal pelvic calcification measuring up to 8 mm similar. Small phleboliths left p debbie. No abnormal calcifications projecting over the left renal shadow. Impression: Similar appearance right renal calculus.
[2020-07-13] MEDS ORDERED: Iothalamate Meglumine 60% 50 ML VIAL FS ONE (09:00)
[2020-07-13] MEDS ORDERED: Fentanyl 100 MCG/2 ML VIAL ONE (09:05)
[2020-07-13] MEDS ORDERED: Oxybutynin 5 MG TAB ONE (10:28)
[2020-07-13] MEDS ORDERED: Phenazopyridine HCl 100 MG TAB ONE (10:28)
--- NOTE | 2020-07-13 10:34 | RAD ---
XR IVP Retrograde History: Cystogram Comparison: Radiograph same day Findings: Multiple fluoroscopic images were obtained from the procedure room. Extensive wires in plac e on the last image. Impression: Fluoroscopy for procedure purposes.
--- NOTE | 2020-07-13 10:45 | OP ---
DATE OF PROCEDURE: 07/13/2020 PREOPERATIVE DIAGNOSES: 1. A 40-year-old female with history of pyelonephritis. 2. Right 1-cm renal pelvic stone. POSTOPERATIVE DIAGNOSES: 1. A 40-year-old female with history of pyelonephritis. 2. Right 1-cm renal pelvic stone. PROCEDURES PERFORMED: Cystoscopy, dilation of right ureter, retrograde pyelogram, ureteroscopy, laser lithotripsy of large right renal pelvic stone, 6 x 24 double-J ureteral stent placement with distal tail in situ. ANESTHESIA: General. COMPLICATIONS: None apparent. SPECIMEN: None. INDICATIONS FOR PROCEDURE AND HISTORY: Kelli is a pleasant female, 40 years old, whom I have seen previously due to pyelonephritis. She had a nonobstructing right renal pelvic stone and presents today for treatment. She has had intermittent flank pain, with gross hematuria. Risks and complications of procedure have been discussed with the patient in detail including, but not limited to: Bleeding, pain, infection, injury to adjacent organs, [id number] injury, stricture formation, possible secondary procedure. All questions are answered to her satisfaction and she desired to proceed. DESCRIPTION OF PROCEDURE: After an informed consent was signed, the patient was taken to the operating room, placed in a dorsal lithotomy position with the genital area prepped and draped in the usual surgical sterile fashion. A 21-Citizen [place] cystoscope was utilized for cystoscopy. The bladder was grossly unremarkable. The UOs were in normal orthotopic position. An open-ended catheter was utilized to intubate the right UO and retrograde pyelogram performed demonstrating no evidence of hydronephrosis. A large renal pelvic stone was seen on preoperative KUB. At this time, a 0.035 Sensor wire was placed in the right upper pole and using a 15-Citizen [place] 6-cm balloon dilator, we dilated the distal intramural ureter. Subsequently, a 10-[place]izen [place] dual-lumen access sheath was passed to the proximal ureter and a second safety wire of 0.035 Super Stiff passed. Over the Super Stiff wire, we gently passed a 12 x 14-[place]izen [place] navigator to the right proximal ureter. There was mild resistance @midureter, however, we passed it atraumatically. We then passed a flexible ureteroscope, surveying the collecting system, which demonstrated a large renal pelvic stone. The stone was pushed into the right upper pole and laser lithotripsy with 273 micron laser fiber at 1.2 joules was performed. Although, stone was hard in nature, using 1.2 joules, the stone was fragmented into dust-like stone debris. At the end of the procedure, what remains were dust- like powder debris, which she will most likely passed uneventfully. Survey of the ureter demonstrated no further ureteral calculi of concern. A 6 x 24 double-J ureteral stent was passed without difficulty, distal tail was left in situ. She tolerated the procedure well and transported to the recovery room in stable condition. She will follow up with me next with KUB 1 hour prior to the appointment. If KUB demonstrates no significant stone nidus of concern, we will proceed with stent pull under local. Job ID: [id number] [facility]
[2020-07-13] MEDS ORDERED: Ketorolac Tromethamine 30 MG/ML VIAL ONE (12:31)
[2020-07-13] MEDS ORDERED: Glycopyrrolate 0.2 MG/ML 5 ML SYRINGE ONE (12:31)
[2020-07-13] MEDS ORDERED: Ondansetron PF 4 MG/2 ML Vial ONE (12:31)
[2020-07-13] MEDS ORDERED: Lidocaine 1% PF 5 ML VIAL ONE (12:31)
[2020-07-13] MEDS ORDERED: Dexamethasone 20 MG/5 ML VIAL ONE (12:31)
[2020-07-13] MEDS ORDERED: PROPOFOL 200 MG/20 ML VIAL ONE (12:31)
[2020-07-13] MEDS ORDERED: Rocuronium Bromide 10 MG/ML (10ML VIAL) ONE (12:31)
== END 2020-07-13 11:38 | disposition home or self-care (01) ==
LOC: SDC 06:34
PROVIDERS: ATTEND Urology
PROC: 0TC38ZZ Extirpation of Matter from Right Kidney Pelvis, Via Natural or Artificial Opening Endoscopic (ICD-10-PCS; principal; 2020-07-13)
PROC: 0T768DZ Dilation of Right Ureter with Intraluminal Device, Via Natural or Artificial Opening Endoscopic (ICD-10-PCS; principal; 2020-07-13)
DX: N20.0 Calculus of kidney (principal); Z79.899 Other long term (current) drug therapy; Z88.1 Allergy status to other antibiotic agents; Z87.891 Personal history of nicotine dependence
CPT/HCPCS: 74018; 74420; J1100; J1885; J2185; J2250; J2405; J2704; J3010; J3490

== ENCOUNTER 2020-07-21 07:13 | Outpatient (CLI) | payer OTHER ==
--- NOTE | 2020-07-21 07:55 | RAD ---
Abdomen one view HISTORY: Renal stone. Follow-up. COMPARISON: 07/13/2020. FINDINGS: Large amount of stool over the colon and rectum suggestive of constipation. Double pigtail stent overlies the course of the right ureter. The right renal calcification on prior exams is no longer evident. Phleboliths project over the pelvis.
== END 2020-07-21 07:14 | disposition home or self-care (01) ==
LOC: RAD 07:13
PROVIDERS: ATTEND Urology
DX: N20.0 Calculus of kidney (principal)
CPT/HCPCS: 74018

== ENCOUNTER 2021-04-20 12:18 | Outpatient (CLI) | payer OTHER ==
[2021-04-20 23:11] LABS: SARS-CoV-2 PCR by NAA Not Detected (NotDetected)
== END 2021-04-20 12:19 | disposition home or self-care (01) ==
LOC: LABBT 12:18
PROVIDERS: ATTEND Orthopaedic Surgery
DX: Z01.812 Encounter for preprocedural laboratory examination (principal); S82.62XA Displaced fracture of lateral malleolus of left fibula, initial encounter for closed fracture; Z20.822 Contact with and (suspected) exposure to COVID-19
CPT/HCPCS: U0003; U0005

== ENCOUNTER 2021-04-25 10:50 | Day surgery (SDC) | payer OTHER ==
[2021-04-24 14:32] VITALS: BMI 38.4
[2021-04-25] MEDS ORDERED: Fentanyl 100 MCG/2 ML VIAL ONE ×4 (11:37→13:49)
[2021-04-25] MEDS ORDERED: Midazolam HCl 2 mg/2 ml Vial ONE (11:38)
[2021-04-25] MEDS ORDERED: ceFAZolin 2 GM/DEX 5% 100 ML BAG ONE (11:55)
[2021-04-25] MEDS ORDERED: Lidocaine 1% PF 5 ML VIAL ONE ×2 (12:30→13:05)
[2021-04-25] MEDS ORDERED: Ondansetron PF 4 MG/2 ML Vial ONE ×2 (12:30→13:05)
[2021-04-25] MEDS ORDERED: Dexamethasone 20 MG/5 ML VIAL ONE (12:30)
[2021-04-25] MEDS ORDERED: PROPOFOL 200 MG/20 ML VIAL ONE (12:30)
[2021-04-25] MEDS ORDERED: Bupivacaine HCl 0.5%/Epinephrine 1:200,000/PF 30 ml Vial ONE (12:30)
[2021-04-25] MEDS ORDERED: Ketorolac Tromethamine 30 MG/ML VIAL ONE (12:30)
[2021-04-25] MEDS ORDERED: PROPOFOL 20 ML ONE (13:05)
[2021-04-25] MEDS ORDERED: Meperidine HCl/PF 25 MG/ML VIAL ONE (13:48)
[2021-04-25] MEDS ORDERED: HYDROcodone/Acetaminophen 5/325 mg Tablet ONE (14:24)
== END 2021-04-25 14:58 | disposition home or self-care (01) ==
LOC: SDC 10:50
PROVIDERS: ATTEND Orthopaedic Surgery
PROC: 0QSK04Z Reposition Left Fibula with Internal Fixation Device, Open Approach (ICD-10-PCS; principal; 2021-04-25)
PROC: 3E0T3BZ Introduction of Anesthetic Agent into Peripheral Nerves and Plexi, Percutaneous Approach (ICD-10-PCS; principal; 2021-04-25)
DX: S82.62XA Displaced fracture of lateral malleolus of left fibula, initial encounter for closed fracture (principal); Z87.891 Personal history of nicotine dependence; Z79.899 Other long term (current) drug therapy; Z88.1 Allergy status to other antibiotic agents; X50.1XXA Overexertion from prolonged static or awkward postures, initial encounter; W17.2XXA Fall into hole, initial encounter
CPT/HCPCS: 76000; C1713; J1100; J1885; J2175; J2250; J2405; J2704; J3010

== ENCOUNTER 2024-04-15 07:10 | Emergency (ER) | payer OTHER ==
[2024-04-15] MEDS ORDERED: Metoclopramide HCl 10 MG (2 mL) VIAL ONE (08:06)
[2024-04-15 08:07] LABS: #Basophils 0.06 10x3/uL (0.0-0.2); %Basophils 0.8 % (0.0-1.0); %Eosinophils 1.5 % (0.0-10.0); %Lymphocytes 17.9 % (21.0-51.0); %Monocytes 5.7 % (0.0-10.0); %Neutrophils 73.8 % (42.0-75.0); Hematocrit 41.7 % (36.0-47.0); Hemoglobin 13.9 g/dL (12.0-16.0); Mean Corpuscular HGB CONC 33.3 g/dL (32.0-36.0); Mean Corpuscular Hemoglobin 29.6 pg (27.0-31.0); Mean Corpuscular Volume 88.7 fL (78.0-98.0); Mean Platelet Volume 9.5 fL (7.4-10.4); Platelet Count 478 10x3/uL (130-400); RBC Distribution Width 13.1 % (11.5-14.5)
[2024-04-15] MEDS ORDERED: Famotidine/PF 20 mg/2ml Vial ONE (08:07)
[2024-04-15 08:24] LABS: ALT (SGPT) 44 U/L (8-55); AST (SGOT) 29 U/L (5-34); Albumin 3.9 g/dL (3.5-5.0); Alkaline Phosphatase 53 U/L (40-110); Anion Gap 11 mmol/L (10-20); BUN (Urea Nitrogen) 8 mg/dL (7.0-18.7); Bilirubin, Total 1.1 mg/dL (0.2-1.2); Calc. Creatinine Clearance 0 mL/min (70-130); Calcium 9.2 mg/dL (7.8-10.44); Carbon Dioxide 22 mmol/L (22-29); Chloride 108 mmol/L (98-107); Estimated GFR 103; Globulin 2.8 g/dL (2.4-3.5); Glucose 101 mg/dL (70-105); Lipase 37 U/L (8-78); Potassium 3.8 mmol/L (3.5-5.1); Protein, Total 6.7 g/dL (6.0-8.3); Sodium 137 mmol/L (136-145)
[2024-04-15 08:35] LABS: Troponin I 0.013 ng/mL (< 0.028)
[2024-04-15 08:55] LABS: Bacteria/HPF None Seen HPF (None Seen); Bilirubin Negative (Negative); Blood, Urine Negative (Negative); CAUTI Indications for Culture Dysuria,urgency,freq; Clarity Clear (Clear); Glucose, Urine (Dipstick) Normal (Negative); Ketone, Urine Trace mg/dL (Negative); Leukocyte Negative Leu/uL (Negative); Nitrite Negative (Negative); Protein, Urine (Dipstick) 10 mg/dL (Neg-Trace); RBC/HPF 0-3 HPF (0-3); Specific Gravity, Urine 1.012 (1.002-1.036); Squamous Epithelial 0-3 HPF (0-3); Urobilinogen Normal mg/dL (Less than 2); WBC/HPF 0-3 HPF (0-3); pH, Urine 6.5 (5.0-9.0)
[2024-04-15 09:04] LABS: Urine Culture Reflex No No
[2024-04-15] MEDS ORDERED: diphenhydrAMINE 50 MG/ML VIAL ONE (09:10)
[2024-04-15 09:31] LABS: Pregnancy Test - Urine (BHCG) Negative (Negative); Pregu Control Background? CLEAR/WHITE (CLR/WHITE); Pregu Control Bar Appear? YES (CONTROL BAR); Specific Gravity 1.012 (1.002-1.036)
[2024-04-15] MEDS ORDERED: Iopamidol-370 76% 500 ML MDV (1 ML CHARGE) ONE (10:50)
== END 2024-04-15 12:57 | disposition home or self-care (01) ==
LOC: ERS 07:10
DX: R10.13 Epigastric pain (principal); R11.2 Nausea with vomiting, unspecified; R19.7 Diarrhea, unspecified; M46.1 Sacroiliitis, not elsewhere classified; K21.9 Gastro-esophageal reflux disease without esophagitis; F17.210 Nicotine dependence, cigarettes, uncomplicated; F17.290 Nicotine dependence, other tobacco product, uncomplicated; Z79.899 Other long term (current) drug therapy
CPT/HCPCS: 36415; 71045; 74177; 76705; 80053; 81001; 81025; 83690; 84484; 85025; 93005; 96365; 96375; J1200; J2765; J3490; Q9967

== ENCOUNTER 2024-05-14 07:27 | Outpatient (CLI) | payer OTHER | END 2024-05-14 07:28 | disposition home or self-care (01) | LOC: SCSMRI 07:27 | PROVIDERS: ATTEND Surgery | DX: R22.41 Localized swelling, mass and lump, right lower limb (principal); S73.191A Other sprain of right hip, initial encounter ==